=== PATIENT | female | born 1960 | race Caucasian/White ===

== ENCOUNTER 2017-04-10 13:58 | Outpatient (CLI) | payer OTHER ==
[2017-04-10 17:30] LABS: BASOPHILS # (AUTO) 0.1 10^3/uL (0.0-0.1); EOSINOPHILS % (AUTO) 0.9 %; HGB - HEMOGLOBIN 12.3 g/dL (12.0-16.0); LYMPHOCYTES # (AUTO) 1.6 10^3/uL (1.5-3.5); LYMPHOCYTES % (AUTO) 27.4 %; MEAN CORPUSCULAR HEMOGLOBIN 32.7 pg (27.0-31.0); MEAN CORPUSCULAR HGB CONC 32.9 g/dL (32.0-36.0); MEAN CORPUSCULAR VOLUME 99.5 fL (81.0-99.0); MEAN PLATELET VOLUME 9.4 fL (7.9-10.8); MONOCYTES # (AUTO) 0.4 10^3/uL (0.0-1.0); MONOCYTES % (AUTO) 6.3 %; NEUTROPHILS # (AUTO) 3.7 10^3/uL (1.5-6.6); NEUTROPHILS % (AUTO) 64.4 %; PLT - PLATELET COUNT 313 10^3/uL (130-450); RED BLOOD COUNT 3.76 10^6/uL (4.20-5.40); WHITE BLOOD COUNT 5.7 x10^3/uL (4.8-10.8)
[2017-04-10 17:42] LABS: ALBUMIN 4.1 g/dL (3.2-5.5); ALBUMIN/GLOBULIN RATIO 1.2 (1.0-2.2); ALKALINE PHOSPHATASE 43 IU/L (42-121); ALT ALANINE AMINOTRANSFERASE < 10 IU/L (10-60); AST ASPARTATE AMINOTRANSFERASE 21 IU/L (10-42); BILIRUBIN,TOTAL 0.5 mg/dL (0.2-1.0); BUN - BLOOD UREA NITROGEN 14 mg/dL (6-20); CALCIUM 9.2 mg/dL (8.5-10.3); CARBON DIOXIDE - CO2 26 mmol/L (21-32); CHLORIDE 101 mmol/L (101-111); CREATININE 0.7 mg/dL (0.4-1.0); GFR - MDRD 87 (>89); GLUCOSE 113 mg/dL (70-100); SODIUM 136 mmol/L (135-145); TOTAL PROTEIN 7.4 g/dL (6.7-8.2)
[2017-04-10 18:00] LABS: THYROID STIMULATING HORMONE 1.12 uIU/mL (0.34-5.60)
[2017-04-10 18:05] LABS: FREE T4 (FREE THYROXINE) 0.72 ng/dL (0.58-1.64)
[2017-04-10 18:07] LABS: TOTAL T3 0.74 ng/mL (0.87-1.78)
[2017-04-13 12:22] LABS: T3 REVERSE 11 ng/dL (8-25)
== END 2017-04-10 13:59 | disposition home or self-care (01) ==
LOC: LAB.F 13:58
PROVIDERS: ATTEND Family Medicine
DX: R63.4 Abnormal weight loss (principal); R61 Generalized hyperhidrosis; E03.9 Hypothyroidism, unspecified; R53.83 Other fatigue
CPT/HCPCS: 36415; 80053; 82626; 84439; 84443; 84480; 84481; 84482; 85025

== ENCOUNTER 2019-01-03 10:24 | Emergency (ER) | payer OTHER ==
[2019-01-03] MEDS ORDERED: LIOTHYRONINE 5 MCG TABLET PO STA (12:57)
--- NOTE | 2019-01-03 12:59 | CT Report ---
Reason: L facial swelling, trauma Procedure Date: 01/03/2019 Accession Number: [id number] / [id number] Procedure: CT - MAXILLOFACIAL WO CPT Code: FULL RESULT: EXAM: CT MAXILLOFACIAL WITHOUT CONTRAST EXAM DATE: 01/03/2019 12:28 PM. CLINICAL HISTORY: L facial swelling, trauma. COMPARISONS: None. TECHNIQUE: Thin-section axial images were acquired of the face without contrast. Post-processing: Coronal and sagittal reformats. Other: None. In accordance with CT protocol optimization, one or more of the following dose reduction techniques were utilized for this exam: automated exposure control, adjustment of mA and/or KV based on patient size, or use of iterative reconstructive technique. FINDINGS: Soft Tissue: The infratemporal fossa and parapharyngeal spaces are unremarkable. Orbits: Symmetric and unremarkable. Bones: No fracture or bone lesion. Nasal septal curvature convex left Temporomandibular Joints: Left TMJ degenerative changes. Right TMJ unremarkable. Sinuses: Mucosal thickening maxillary sinuses. Other: None. DJD cervical spine. IMPRESSION: No acute fractures RADIA
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
[2019-01-03 13:41] VITALS: BP 138/100
== END 2019-01-03 13:41 | disposition home or self-care (01) ==
LOC: ED 10:24
DX: S40.022A Contusion of left upper arm, initial encounter (principal); S40.021A Contusion of right upper arm, initial encounter; S80.12XA Contusion of left lower leg, initial encounter; S80.11XA Contusion of right lower leg, initial encounter; S00.11XA Contusion of right eyelid and periocular area, initial encounter; R68.84 Jaw pain; Y04.2XXA Assault by strike against or bumped into by another person, initial encounter; Y07.01 Husband, perpetrator of maltreatment and neglect; Y92.009 Unspecified place in unspecified non-institutional (private) residence as the place of occurrence of the external cause
CPT/HCPCS: 70450; 70486; 99284; A9270

== ENCOUNTER 2019-10-03 12:00 | Outpatient (CLI) | payer OTHER | END 2019-10-03 12:01 | disposition home or self-care (01) | LOC: LAB.S 12:00 → LAB 12:01 | PROVIDERS: ATTEND Family Medicine | DX: Z20.828 Contact with and (suspected) exposure to other viral communicable diseases (principal) ==

== ENCOUNTER 2022-01-13 17:38 | Outpatient (CLI) | payer MEDICAID ==
--- NOTE | 2022-01-16 15:52 | MRI Report ---
PROCEDURE: LUMBAR SPINE WO INDICATIONS: Lumbar spinal stenosis TECHNIQUE: Noncontrast sagittal T1 spin echo and T2 fast echo, sagittal STIR, axial T1 and T2 fast spin echo thr ough the lumbar spine. In cases with scoliosis, additional coronal T2 fast spin echo may be performe d. COMPARISON: None. FINDINGS: There is 3 mm anterolisthesis of L4 on L5 and 2 mm retrolisthesis of L1 on L2. Upper lumbar dextrosco liosis and lower lumbar compensatory levoscoliosis. Normal lumbar vertebral body height. Discogenic m arrow edema at the opposing L1-L2 endplates. Bulky facet hypertrophy throughout the lumbar spine. Nor mal position and appearance of the conus. Prevertebral and paraspinous soft tissues are normal. At T12-L1, no spinal canal or neural foraminal stenosis. L1-L2, diffuse disc bulge flattens the ventral thecal sac without mass effect upon the traversing L2 nerve roots. Foraminal components of the disc bulge and facet hypertrophy combine to produce moderate left and mild right neural foraminal stenosis. At L2-L3, disc material flattens the ventral thecal sac without mass effect upon the traversing L3 ne rve roots or significant spinal canal stenosis. There is mild bilateral neural foraminal narrowing du e to foraminal components of the disc bulge and facet hypertrophy. At L3-L4, disc bulge flattens and indents the ventral thecal sac with mild displacement of the descen ding L4 nerve roots and both subarticular zones. Foraminal components of the disc bulge combined with facet hypertrophy to produce mild bilateral neural foraminal stenosis. At L4-L5, diffuse disc bulge flattens the ventral thecal sac with moderate displacement of the descen ding L5 nerve roots in both subarticular zones. Foraminal components of the disc bulge and facet hype rtrophy combine to produce mild bilateral neural foraminal narrowing, right greater than left. At L5-S1, diffuse disc bulge flattens the ventral thecal sac without mass effect upon the traversing S1 nerve roots. Foraminal components of the disc bulge and facet hypertrophy combine to produce mild bilateral neural foraminal narrowing. IMPRESSION: Multilevel multifactorial degenerative changes as detailed above, most pronounced at L4-L5. Correlate for any corresponding radicular symptoms. Reviewed by: Donavon Fox MD on 01/16/2022 3:50 PM PDT Approved by: Donavon Fox MD on 01/16/2022 3:50 PM [facility] Station ID: [id number]
== END 2022-01-13 17:39 | disposition home or self-care (01) ==
LOC: DI 17:38
PROVIDERS: ATTEND Physical Medicine & Rehabilitation
DX: M43.16 Spondylolisthesis, lumbar region (principal); M47.816 Spondylosis without myelopathy or radiculopathy, lumbar region; M48.061 Spinal stenosis, lumbar region without neurogenic claudication; M47.817 Spondylosis without myelopathy or radiculopathy, lumbosacral region; M48.07 Spinal stenosis, lumbosacral region

== ENCOUNTER 2022-05-24 09:06 | Outpatient (CLI) | payer MEDICAID ==
[2022-05-24 14:56] LABS: BASOPHILS # (AUTO) 0.1 10^3/uL (0.0-0.1); BASOPHILS % (AUTO) 1.1 %; EOSINOPHILS # (AUTO) 0.1 10^3/uL (0.0-0.7); EOSINOPHILS % (AUTO) 2.4 %; HCT - HEMATOCRIT 36.7 % (37.0-47.0); LYMPHOCYTES # (AUTO) 1.9 10^3/uL (1.5-3.5); LYMPHOCYTES % (AUTO) 41.6 %; MEAN CORPUSCULAR HEMOGLOBIN 33.9 pg (27.0-31.0); MEAN CORPUSCULAR HGB CONC 32.7 g/dL (32.0-36.0); MEAN CORPUSCULAR VOLUME 103.7 fL (81.0-99.0); MEAN PLATELET VOLUME 11.4 fL (7.9-10.8); MONOCYTES # (AUTO) 0.5 10^3/uL (0.0-1.0); MONOCYTES % (AUTO) 9.9 %; NEUTROPHILS # (AUTO) 2.1 10^3/uL (1.5-6.6); PLT - PLATELET COUNT 342 10^3/uL (130-450); RED BLOOD COUNT 3.54 10^6/uL (4.20-5.40); RED CELL DISTRIBUTION WIDTH 12.4 % (12.0-15.0); WHITE BLOOD COUNT 4.6 x10^3/uL (4.8-10.8)
[2022-05-24 15:28] LABS: % IRON SATURATION 45 % (20-50); ALBUMIN 4.1 g/dL (3.2-5.5); ALBUMIN/GLOBULIN RATIO 1.2 (1.0-2.2); ALKALINE PHOSPHATASE 40 IU/L (42-121); ALT ALANINE AMINOTRANSFERASE 10 IU/L (10-60); AST ASPARTATE AMINOTRANSFERASE 22 IU/L (10-42); BILIRUBIN,TOTAL 1.2 mg/dL (0.2-1.0); BUN - BLOOD UREA NITROGEN 17 mg/dL (6-20); CARBON DIOXIDE - CO2 26 mmol/L (21-32); CHLORIDE 102 mmol/L (101-111); CHOLESTEROL 220 mg/dL; CREATININE 0.7 mg/dL (0.4-1.0); FREE T3 3.02 pg/mL (2.5-3.9); GFR - MDRD 85 (>89); GLUCOSE 100 mg/dL (70-100); HDL CHOLESTEROL 108 mg/dL; IRON 161 ug/dL (28-170); LDL CHOLESTEROL,CALCULATED 104 mg/dL; POTASSIUM 3.9 mmol/L (3.5-5.0); SODIUM 137 mmol/L (135-145); TOTAL IRON BINDING CAPACITY 356 ug/dL (250-450); TOTAL PROTEIN 7.4 g/dL (6.7-8.2); TRANSFERRIN 254 mg/dL (192-382); TRIGLYCERIDES 40 mg/dL; VLDL CHOLESTEROL 8 mg/dL
[2022-05-24 15:29] LABS: FREE T4 (FREE THYROXINE) 0.7 ng/dL (0.58-1.64); THYROID STIMULATING HORMONE 1.29 uIU/mL (0.34-5.60)
[2022-05-24 15:31] LABS: CRP HIGH SENSITIVITY < 0.5 mg/L
[2022-05-24 15:32] LABS: FERRITIN 92.1 ng/mL (11.0-306.8)
[2022-05-24 20:39] LABS: ESTIMATED AVERAGE GLUCOSE 108 mg/dL (70-100); HEMOGLOBIN A1c% 5.4 % (4.27-6.07)
[2022-05-25 07:10] LABS: THYROID PEROXIDASE (TPO) AB <9 IU/mL (0-34); VITAMIN D 25-HYDROXY 72.1 ng/mL (30.0-100.0)
== END 2022-05-24 09:07 | disposition home or self-care (01) ==
LOC: LAB.S 09:06
PROVIDERS: ATTEND Family Medicine
DX: E78.5 Hyperlipidemia, unspecified (principal); E03.9 Hypothyroidism, unspecified; E55.9 Vitamin D deficiency, unspecified; R53.83 Other fatigue; D64.9 Anemia, unspecified
CPT/HCPCS: 36415; 80053; 80061; 82306; 82626; 82728; 83036; 83090; 83540; 83721; 84439; 84443; 84466; 84480; 84481; 84482; 85025; 86141; 86376

== ENCOUNTER 2022-06-28 09:43 | Outpatient (CLI) | payer MEDICAID ==
--- NOTE | 2022-06-28 11:07 | DEXA Report ---
PROCEDURE: Dexa Spine and/or Hip INDICATIONS: POST MENOPAUSAL TECHNIQUE: Dual energy x-ray absorptiometry (DXA) was performed on a Seamless System. Regions measur ed are the AP Spine, femoral neck, and if needed forearm. COMPARISON: None. FINDINGS: Lumbar Spine: Bone Mineral Density 0.914 g/cm/cm,T score -2.2, moderate to severe osteopenia Left Femoral Neck: Bone Mineral Density 0.689 g/cm/cm, T score -2.5, osteoporosis Left Hip: Bone Mineral Density 0.728 g/cm/cm,T score -2.2, moderate to severe osteopenia (T score greater or equal to -1.0: NORMAL) (T score from -1.1 to -2.4: OSTEOPENIA) (T score less than or equal to -2.5 to: OSTEOPOROSIS) Impression: Moderate to severe osteopenia in the lumbar spine and left hip as well as osteoporosis in the left fe moral neck. Patients with diagnosis of osteoporosis or osteopenia should have regular bone mineral density assess ment. For those eligible for Medicare, routine testing is allowed once every 2 years. Testing frequ ency can be increased for patients who have rapidly progressing disease or for those who are receivin g medical therapy to restore bone mass. Reviewed by: Tata Tellez MD on 06/28/2022 11:06 AM PDT Approved by: Tata Tellez MD on 06/28/2022 11:06 AM PDT Station ID: [id number]
== END 2022-06-28 09:44 | disposition home or self-care (01) ==
LOC: DI 09:43
PROVIDERS: ATTEND Family Medicine
DX: Z78.0 Asymptomatic menopausal state (principal); M81.0 Age-related osteoporosis without current pathological fracture

== ENCOUNTER 2022-09-20 10:04 | Outpatient (CLI) | payer MEDICAID ==
[2022-09-20 14:33] LABS: BASOPHILS # (AUTO) 0.1 10^3/uL (0.0-0.1); BASOPHILS % (AUTO) 1.3 %; EOSINOPHILS # (AUTO) 0.1 10^3/uL (0.0-0.7); EOSINOPHILS % (AUTO) 2.9 %; HCT - HEMATOCRIT 40.5 % (37.0-47.0); HGB - HEMOGLOBIN 13.5 g/dL (12.0-16.0); LYMPHOCYTES # (AUTO) 2.1 10^3/uL (1.5-3.5); LYMPHOCYTES % (AUTO) 47.4 %; MEAN CORPUSCULAR HEMOGLOBIN 33.9 pg (27.0-31.0); MEAN CORPUSCULAR HGB CONC 33.3 g/dL (32.0-36.0); MEAN CORPUSCULAR VOLUME 101.8 fL (81.0-99.0); MEAN PLATELET VOLUME 11.6 fL (7.9-10.8); MONOCYTES # (AUTO) 0.4 10^3/uL (0.0-1.0); MONOCYTES % (AUTO) 8.7 %; NEUTROPHILS # (AUTO) 1.8 10^3/uL (1.5-6.6); NEUTROPHILS % (AUTO) 39.5 %; PLT - PLATELET COUNT 324 10^3/uL (130-450); RED BLOOD COUNT 3.98 10^6/uL (4.20-5.40); RED CELL DISTRIBUTION WIDTH 12.1 % (12.0-15.0); WHITE BLOOD COUNT 4.5 x10^3/uL (4.8-10.8)
[2022-09-20 14:58] LABS: THYROID STIMULATING HORMONE 1.9 uIU/mL (0.34-5.60)
[2022-09-20 15:00] LABS: FREE T3 2.68 pg/mL (2.5-3.9); FREE T4 (FREE THYROXINE) 0.66 ng/dL (0.58-1.64)
[2022-09-20 15:05] LABS: % IRON SATURATION 40 % (20-50); ALBUMIN 4.2 g/dL (3.2-5.5); ALBUMIN/GLOBULIN RATIO 1.1 (1.0-2.2); ALKALINE PHOSPHATASE 42 IU/L (42-121); ALT ALANINE AMINOTRANSFERASE 10 IU/L (10-60); AMYLASE 88 U/L (28-100); AST ASPARTATE AMINOTRANSFERASE 23 IU/L (10-42); BILIRUBIN,DIRECT 0.1 mg/dL (0.1-0.5); BILIRUBIN,TOTAL 0.9 mg/dL (0.2-1.0); BUN - BLOOD UREA NITROGEN 14 mg/dL (6-20); CALCIUM 9.7 mg/dL (8.5-10.3); CARBON DIOXIDE - CO2 28 mmol/L (21-32); CHLORIDE 103 mmol/L (101-111); CREATININE 0.8 mg/dL (0.4-1.0); FERRITIN 50.8 ng/mL (11.0-306.8); GAMMA GLUTAMYL TRANSPEPTIDASE 18 IU/L (8-38); GFR - MDRD 73 (>89); GLUCOSE 111 mg/dL (70-100); IRON 146 ug/dL (28-170); LIPASE 41 U/L (22-51); POTASSIUM 4.2 mmol/L (3.5-5.0); SODIUM 139 mmol/L (135-145); TOTAL IRON BINDING CAPACITY 363 ug/dL (250-450); TOTAL PROTEIN 7.9 g/dL (6.7-8.2); TRANSFERRIN 259 mg/dL (192-382)
[2022-09-20 15:13] LABS: CRP HIGH SENSITIVITY < 0.5 mg/L
[2022-09-20 20:10] LABS: ESTIMATED AVERAGE GLUCOSE 105 mg/dL (70-100); HEMOGLOBIN A1c% 5.3 % (4.27-6.07)
== END 2022-09-20 10:05 | disposition home or self-care (01) ==
LOC: LAB.S 10:04
PROVIDERS: ATTEND Family Medicine
DX: D64.9 Anemia, unspecified (principal); R94.5 Abnormal results of liver function studies; E03.9 Hypothyroidism, unspecified; R10.9 Unspecified abdominal pain; L29.9 Pruritus, unspecified; R53.83 Other fatigue; R68.81 Early satiety
CPT/HCPCS: 36415; 80053; 82150; 82248; 82626; 82728; 82977; 83036; 83090; 83540; 83690; 84439; 84443; 84466; 84480; 84481; 84482; 85025; 86141

== ENCOUNTER 2023-09-28 22:21 | Emergency (ER) | payer MEDICAID ==
[2023-09-28] MEDS: oxyCODONE 5 MG TABLET PO STA (23:03)
--- NOTE | 2023-09-28 23:22 | ED Physician Documentation ---
History of Present Illness - Stated complaint Stated Complaint: L HAND INJ - Chief complaint Chief Complaint: Trauma Ext - History obtained from History obtained from: Patient - Additonal information Additional information: 62-year-old woman presents status post fall onto outstretched hand with left hand obvious deformity. She is right-hand dominant.Endorses pain at the site but no other injury. 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 : None Psych: Depression Musculoskeletal: None Derm: None - Past Surgical History Past Surgical History: Yes HEENT: Other - Present Medications Home Medications: Ambulatory Orders Medication Instructions Recorded Confirmed Ondansetron Odt [Zofran Odt] 4 mg TL Q6H PRN #10 tablet 09/29/23 Oxycodone HCl/Acetaminophen 1 each PO Q4H PRN #8 tablet 09/29/23 [Percocet 5-325 mg Tablet] - Allergies Allergies/Adverse Reactions: Allergies Allergy/AdvReac Type Severity Reaction Status Date / Time venlafaxine [From Effexor] AdvReac Dizziness Verified 09/28/23 22:28 - Social History Does the pt smoke?: No Smoking Status: Never smoker Does the pt drink ETOH?: Yes Does the pt have substance abuse?: No - Immunizations Immunizations are current?: No Immunizations: TDAP >10years/unknown - POLST Patient has POLST: No PD ED PE NORMAL - Vitals Vital signs reviewed: Yes - General General: Alert and oriented X 3, No acute distress, Well developed/nourished - HEENT HEENT: Atraumatic, PERRL, EOMI - Neck Neck: No bony TTP - Back Back: No spinal TTP - Derm Derm: Normal color, Warm and dry - Extremities Extremities: Other (Left hand good 2+ radial pulse and normal capillary refill. Sensation and movement intact. Obvious left wrist deformity with tenderness over the deformed area. Tender with range of motion of left wrist.) Results - Vitals Vitals: Vital Signs - 24 hr 09/28/23 09/28/23 09/29/23 22:28 23:51 00:20 Temperature 36.6 C 36 C L 36.2 C L Heart Rate 51 L 51 L 70 Respiratory 14 16 16 Rate Blood Pressure 169/83 H 166/98 H 172/91 H O2 Saturation 97 97 99 If not protocol 5 : Oxygen Flow, liters/minute Oxygen O2 Source Room air Procedures - Reduction Body part reduced: Left, Wrist Fracture or dislocation: Fracture Reduction aftercare: NV intact, Xray confirms reduction, Alignment improved, Splint applied, Patient tolerated well - Procedural sedation Sedation prep: Informed consent, Time out completed, Last meal (2pm), PE performed, ASA 2 - mild disease (copd, htn), IV O2 monitor, ET CO2 monitor, RT present Sedation Medications: propofol (100mg) Mallampati classification: II Patient status during sedation: Drowsy, Vitals remained stable, Maintained airway, Recovered uneventfully Sedation recovery: Recovered uneventfully, Back to baseline Time in sedation (Minutes): 15 PD Medical Decision Making - ED course ED course: 62-year-old woman presents with right distal radius fracture status post fall onto outstretched hand after tripping onto left breast. Denies other injury. Fracture was reduced under conscious sedation and sugar-tong splint was placed. Return precautions given. Plan to follow-up outpatient with orthopedics. Departure - Departure Disposition: 01 Home, Self Care Clinical Impression: Distal radius fracture Condition: Stable Instructions: Sedation Procedural, ED Fx Upper Ext Follow-Up: Bud Mina MD [Provider Admit Priv/Credential] - Prescriptions: Oxycodone HCl/Acetaminophen [Percocet 5-325 mg Tablet] 1 each PO Q4H PRN #8 tablet PRN Reason: Pain >8 Ondansetron Odt [Zofran Odt] 4 mg TL Q6H PRN #10 tablet PRN Reason: Nausea / Vomiting Comments: You were seen in the emergency department for Distal radius fracture, break in the bone inferior end of your forearm almost at the wrist. [facility]s sent to [facility]. For percoset: Do not use when driving or operating heavy machinery. Dispose of any unused pills at your local police station. This medication may cause constipation. If you are prone to constipation then please take with hdxw-[id number]-ordvuly sennadocusate and MiraLAX. Please follow-up with orthopedics and return to the emergency department if you have any new or worsening symptoms or other concerns. Forms: PCP List
[2023-09-28] MEDS: oxyCODONE/ACET 5/325 Prepack 4 PO STA (23:26)
--- NOTE | 2023-09-29 00:10 | XRAY Report ---
PROCEDURE: Wrist 3+V LT INDICATIONS: trauma TECHNIQUE: 3 views of the wrist were acquired. COMPARISON: None. FINDINGS: Bones: There is an impacted fracture of the distal radius with moderate impaction and mild apex vent ral angulation. Radiocarpal alignment remains normal. Soft tissues: Moderate calcifications in the region of the triangular fibrocartilage. No foreign bod ies or suspicious calcifications. IMPRESSION: Impacted distal radius fracture without definite intra-articular extension. Reviewed by: Flora Avila MD on 09/29/2023 12:09 AM PDT Approved by: Flora Avila MD on 09/29/2023 12:09 AM PDT Station ID: [id number]
[2023-09-29] MEDS: PROPOFOL 200 MG/20 ML VIAL IVP STA (00:23)
--- NOTE | 2023-09-29 01:28 | XRAY Report ---
PROCEDURE: Wrist 3+V LT INDICATIONS: L distal radius fx TECHNIQUE: 3 views of the wrist were acquired. COMPARISON: Films performed earlier the same day FINDINGS: Bones: New splint material in place. There is improved positioning of the distal radius fracture fra gments with slight reduction and less impaction. There is less angulation. Radiocarpal and distal rad ioulnar joint are in appropriate alignment. Soft tissues: No suspicious soft tissue calcifications or masses. IMPRESSION: Improved positioning post reduction and splinting. Reviewed by: Flora Avila MD on 09/29/2023 1:27 AM PDT Approved by: Flora Avila MD on 09/29/2023 1:27 AM PDT Station ID: [id number]
[2023-09-29 01:50] VITALS: BP 162/63; O2SAT 99
== END 2023-09-29 01:49 | disposition home or self-care (01) ==
LOC: ED 22:21
DX: S52.502A Unspecified fracture of the lower end of left radius, initial encounter for closed fracture (principal); W01.0XXA Fall on same level from slipping, tripping and stumbling without subsequent striking against object, initial encounter
CPT/HCPCS: 25605; 73110; 99152; 99284; 99285; A9270

== ENCOUNTER 2023-10-08 10:48 | Outpatient (CLI) | payer MEDICAID ==
--- NOTE | 2023-10-08 22:05 | XRAY Report ---
PROCEDURE: Wrist 3+V LT INDICATIONS: LEFT WRIST PAIN TECHNIQUE: 3 views of the wrist were acquired. COMPARISON: X-ray wrist 09/28/2023 FINDINGS: Bones: Overlying cast material obscures fine detail evaluation. There is a comminuted impacted intra -articular distal radial fracture. Overall alignment is stable compared to prior exam with dorsal ang ulation. Soft tissues: No suspicious soft tissue calcifications or masses. IMPRESSION: Stable alignment of distal radial comminuted fracture. Reviewed by: Taat Tellez MD on 10/08/2023 10:03 PM PDT Approved by: Tata Tellez MD on 10/08/2023 10:03 PM PDT Station ID: [id number]
== END 2023-10-08 10:49 | disposition home or self-care (01) ==
LOC: DI 10:48
PROVIDERS: ATTEND Orthopaedic Surgery
DX: S52.572D Other intraarticular fracture of lower end of left radius, subsequent encounter for closed fracture with routine healing (principal)

== ENCOUNTER 2023-10-25 08:59 | Outpatient (CLI) | payer MEDICAID ==
--- NOTE | 2023-10-25 11:53 | XRAY Report ---
PROCEDURE: Wrist 3+V LT INDICATIONS: FX OF LOWER END OF RADIUS TECHNIQUE: 3 views of the wrist were acquired. COMPARISON: Left wrist radiograph on October 08, 2023. FINDINGS: Bones: Interval callus formation of comminuted, impacted, transverse, extra articular fracture of th e distal radius. Stable alignment with posttraumatic ulnar positive variance and apex volar angulatio n fragment. No suspicious bony lesions. Query chondrocalcinosis of the TFCC. Soft tissues: Interval removal of overlying splint. No suspicious soft tissue calcifications or mass es. IMPRESSION: Interval osseous healing of comminuted, impacted,extra-articular fracture of the distal radius. Stabl e alignment with posttraumatic ulnar positive variance and apex volar angulation. Reviewed by: Gael Santoyo MD on 10/25/2023 11:52 AM PDT Approved by: Gael Snatoyo MD on 10/25/2023 11:52 AM PDT Station ID: [id number]
== END 2023-10-25 09:00 | disposition home or self-care (01) ==
LOC: DI 08:59
PROVIDERS: ATTEND Orthopaedic Surgery
DX: S52.532D Colles' fracture of left radius, subsequent encounter for closed fracture with routine healing (principal)

== ENCOUNTER 2023-11-07 14:43 | Outpatient (CLI) | payer MEDICAID ==
--- NOTE | 2023-11-08 15:33 | XRAY Report ---
Wrist 3+V LT HISTORY: 62 years of age, RIGHT WRIST INJURY TECHNIQUE: Wrist 3+V LT COMPARISON: 10/25/2023. FINDINGS/IMPRESSION: Mildly impacted fracture of the distal radius, with mild volar angulation distal fracture fragment, u nchanged from prior exam. No interval healing. Ulnar positive variance. Interval mild widening of sca pholunate interval, concerning for ligamentous injury, new from prior exam. Mild degenerative change of the first carpal metacarpal and the triscaphe joint. Chondrocalcinosis of the triangular fibrocartilage, representing CPPD arthropathy. Reviewed by: Susannah Farr MD on 11/08/2023 3:32 PM PDT Approved by: Susannah Farr MD on 11/08/2023 3:32 PM PDT Station ID: [id number]
== END 2023-11-07 14:44 | disposition home or self-care (01) ==
LOC: DI.S 14:43
PROVIDERS: ATTEND Orthopaedic Surgery
DX: S52.502A Unspecified fracture of the lower end of left radius, initial encounter for closed fracture (principal); M18.12 Unilateral primary osteoarthritis of first carpometacarpal joint, left hand; M19.032 Primary osteoarthritis, left wrist